=== PATIENT | female | born 1980 | race American Indian/Alaskan Native ===

== ENCOUNTER 2020-12-03 09:21 | Emergency (ER) | payer MEDICAID ==
[2020-12-03 09:42] VITALS: BP 119/64
--- NOTE | 2020-12-03 11:05 | Emergency Department Report ---
ED ENT HPI - General Chief complaint: Sore Throat Stated complaint: LUMP ON THROAT,PAIN WHEN MOVING NECK Time Seen by Provider: 12/03/20 10:20 Source: patient Mode of arrival: Ambulatory Limitations: No Limitations - History of Present Illness Initial comments: 40-year-old -[place] female who was vaccinated for Covid. Patient presents for sore throat for 2 weeks. Patient states that the outside just started to hurt and feels swollen yesterday evening. Patient denies any other complaints besides sore throat. She does have a primary care provider but was not able to get in to be evaluated. Patient denies any weight loss but does admit to use sometimes voice change. Patient denies any chest pain no shortness of breath no nausea no vomiting. MD complaint: sore throat Onset/Timin -: week(s) Location: throat Severity: moderate Severity scale (0 -10): 7 Quality: stabbing, other Consistency: intermittent Improves with: none Worsens with: swallowing Associated Symptoms: pain with swallowing, sore throat. denies: fever, cough, gum swelling, toothache, tinnitus, hearing loss, discharge from ear, rhinorrhea, other - Related Data Allergies Allergy/AdvReac Type Severity Reaction Status Date / Time No Known Allergies Allergy Unverified 12/03/20 09:38 ED Dental HPI - General Chief complaint: Sore Throat Stated complaint: LUMP ON THROAT,PAIN WHEN MOVING NECK Time Seen by Provider: 12/03/20 10:20 Source: patient Mode of arrival: Ambulatory Limitations: No Limitations - Related Data Allergies Allergy/AdvReac Type Severity Reaction Status Date / Time No Known Allergies Allergy Unverified 12/03/20 09:38 ED Review of Systems ROS: Stated complaint: LUMP ON THROAT,PAIN WHEN MOVING NECK Other details as noted in HPI Comment: All other systems reviewed and negative ED Past Medical Hx - Past Medical History Previous Medical History?: No - Surgical History Past Surgical History?: Yes Additional Surgical History: TL, hernia repair ED Physical Exam - General Limitations: No Limitations General appearance: alert, in no apparent distress - Head Head exam: Present: atraumatic, normocephalic - Eye Eye exam: Present: normal appearance - ENT ENT exam: Present: mucous membranes moist - Expanded ENT Exam Expanded Mouth exam: Absent: muffled voice Teeth exam: Present: normal inspection Throat exam: Negative: tonsillar erythema, tonsillomegaly - Neck Neck exam: Present: normal inspection, tenderness, lymphadenopathy, thyromegaly (Left side) - Respiratory Respiratory exam: Present: normal lung sounds bilaterally. Absent: respiratory distress, chest wall tenderness - Cardiovascular Cardiovascular Exam: Present: regular rate - Back Exam Back exam: Present: normal inspection, full ROM - Neurological Exam Neurological exam: Present: alert, oriented X3, normal gait - Psychiatric Psychiatric exam: Present: normal affect, normal mood - Skin Skin exam: Present: warm, dry, intact, normal color. Absent: rash ED Course Vital Signs 12/03/20 09:39 Temperature 98.4 F Pulse Rate 91 H Respiratory 18 Rate Blood Pressure 119/64 [Right] O2 Sat by Pulse 100 Oximetry ED Medical Decision Making - Lab Data Result diagrams: 12/03/20 10:57 12/03/20 10:57 - Medical Decision Making 40-year-old -[place] female who was vaccinated for Covid. Patient presents for sore throat for 2 weeks. Patient states that the outside just started to hurt and feels swollen yesterday evening. Patient denies any other complaints besides sore throat. She does have a primary care provider but was not able to get in to be evaluated. Patient denies any weight loss but does admit to use sometimes voice change. Patient denies any chest pain no shortness of breath no nausea no vomiting. Ordered TSH CBC CMP T4. Patient has some thyroid megaly as well as a mild tachycardic. We'll try to rule out hyperthyroidism. Oropharynx is within normal limits. Critical care attestation.: If time is entered above; I have spent that time in minutes in the direct care of this critically ill patient, excluding procedure time. ED Disposition Clinical Impression: Sore throat Disposition: HOME / SELF CARE / HOMELESS Is pt being admited?: No Does the pt Need Aspirin: No Condition: Stable Instructions: Sore Throat, [id number] Additional Instructions: Blood work are all nonactionable. I recommend to follow-up with your primary care provider. Referrals: PRIMARY CARE, [Primary Care Provider] - 3-5 Days Forms: Work/School Release Form(ED)
[2020-12-03 11:31] LABS: Basophils % (Auto) 0.4 % (0.0-1.8); Eosinophils % (Auto) 0.7 % (0.0-4.3); Hematocrit 38.4 % (30.3-42.9); Hemoglobin 12.9 gm/dl (10.1-14.3); Lymphocytes # (Auto) 1.2 K/mm3 (1.2-5.4); Mean Corpuscular HGB Conc 34 % (30-34); Mean Corpuscular Volume 95 fl (79-97); Monocytes # (Auto) 0.5 K/mm3 (0.0-0.8); Monocytes % (Auto) 9.2 % (0.0-7.3); Platelet Count 274 K/mm3 (140-440); Red Blood Count 4.03 M/mm3 (3.65-5.03)
[2020-12-03 12:27] LABS: Alanine Aminotransferase 8 units/L (7-56); Albumin 4.1 g/dL (3.9-5); Blood Urea Nitrogen 6 mg/dL (7-17); Calcium 9.8 mg/dL (8.4-10.2); Hemolysis Index 0
[2020-12-03 12:42] LABS: BUN/Creatinine Ratio 12
== END 2020-12-03 14:25 | disposition home or self-care (01) ==
LOC: ED 09:21
DX: J02.9 Acute pharyngitis, unspecified (principal); Z98.890 Other specified postprocedural states
CPT/HCPCS: 36415; 80053; 84436; 84443; 85025; 99283